=== PATIENT | male | born 1965 | race African-American/Black ===

== ENCOUNTER 2022-01-16 02:55 | Emergency (ER) | payer SELFPAY ==
[~2022-01-16] VITALS: Ht 175.3 cm; Wt 113.0 kg
[2022-01-16 03:31] VITALS: BP 196/126
[2022-01-16] MEDS ORDERED: CALA177S9 TP (08:28)
[2022-01-16] MEDS ORDERED: MINE50OI TP (08:28)
[2022-01-16] MEDS ORDERED: DIPH25CA83 MT (08:29)
[2022-01-16] MEDS ORDERED: DEXAMETHASONE 4MG/ML 1ML VIAL IM ONE (08:30)
== END 2022-01-16 08:43 | disposition home or self-care (01) ==
LOC: ER 02:55
DX: L25.9 Unspecified contact dermatitis, unspecified cause (principal); I10 Essential (primary) hypertension; I25.2 Old myocardial infarction; Z87.891 Personal history of nicotine dependence
CPT/HCPCS: 96372; 99283; J1100

== ENCOUNTER 2023-04-04 13:39 | Emergency (ER) | payer MEDICAID, OTHER ==
[~2023-04-04] VITALS: Ht 175.3 cm; Wt 113.0 kg
[~2023-04-04 13:39] MED LIST: CALA177S9 TP; DIPH25CA83 MT; MINE50OI TP
[2023-04-04 13:53] VITALS: O2SAT 100
[2023-04-04] MEDS ORDERED: DIPH25CA83 PO (15:48)
[2023-04-04] MEDS ORDERED: NAPR-681 PO (15:48)
[2023-04-04] MEDS ORDERED: CEPH500T MT (15:48)
[2023-04-04] MEDS ORDERED: SULF1TAB48 MT (15:48)
[2023-04-04 16:05] VITALS: BP 155/89; PULSE 75; RESP 18; TEMP 98.7
[2023-04-05] MEDS ORDERED: CALA177S9 TP (23:34)
== END 2023-04-04 16:06 | disposition home or self-care (01) ==
LOC: ER 13:39
DX: L73.9 Follicular disorder, unspecified (principal)
CPT/HCPCS: 99283

== ENCOUNTER 2023-04-05 20:47 | Emergency (ER) | payer MEDICAID, OTHER ==
[~2023-04-05] VITALS: Ht 170.2 cm; Wt 114.0 kg
[~2023-04-05 20:47] MED LIST changes: +CEPH500T MT; +DIPH25CA83 PO; +NAPR-681 PO; +SULF1TAB48 MT
[2023-04-05 21:35] VITALS: BP 164/119; O2SAT 97
[2023-04-05] MEDS ORDERED: DEXAMETHASONE 10 MG/ML VIAL IM ONE (23:15)
[2023-04-05] MEDS ORDERED: CALA177S9 TP (23:34)
[2023-04-05 23:50] VITALS: PULSE 76; RESP 18; TEMP 98.8
== END 2023-04-05 23:52 | disposition home or self-care (01) ==
LOC: ER 22:15
DX: L23.9 Allergic contact dermatitis, unspecified cause (principal); L73.9 Follicular disorder, unspecified; I10 Essential (primary) hypertension
CPT/HCPCS: 99283; 96372; J1100

== ENCOUNTER 2025-04-16 09:41 | Emergency (ER) | payer MEDICAID ==
[~2025-04-16] VITALS: Ht 172.7 cm; Wt 100.0 kg
[2025-04-16 09:45] VITALS: O2SAT 99
[2025-04-16] MEDS ORDERED: DIPHENHYDRAMINE 50MG CAPSULE PO ONE (11:00)
[2025-04-16] MEDS: DEXAMETHASONE 4MG TABLET PO ONE (11:00)
[2025-04-16] MEDS: ACETAMINOPHEN 325MG TABLET PO ONE (11:00)
[2025-04-16] MEDS: DIPHENHYDRAMINE 25MG CAPSULE PO NR (11:30)
[2025-04-16] MEDS ORDERED: TC1C15 TP (11:59)
[2025-04-16 12:03] VITALS: BP 205/118; PULSE 66; RESP 16; TEMP 37; O2SAT 99
== END 2025-04-16 12:04 | disposition home or self-care (01) ==
LOC: ER 10:11
DX: L25.9 Unspecified contact dermatitis, unspecified cause (principal); I10 Essential (primary) hypertension; Z98.890 Other specified postprocedural states; Z79.899 Other long term (current) drug therapy
CPT/HCPCS: 99284; J8540; Q0163